=== PATIENT | female | born 1950 | race Caucasian/White ===

== ENCOUNTER 2018-11-09 11:27 | Emergency (ER) | payer MEDICARE, OTHER ==
[~2018-11-09] VITALS: Ht 160 cm; Wt 69.5 kg
[2018-11-09 11:33] VITALS: TEMP 97.7
[2018-11-09] MEDS ORDERED: SYNTHROID0.125 MG/T PO (11:40)
[2018-11-09] MEDS ORDERED: VITAMIN D32000 I1 PO (11:41)
[2018-11-09] MEDS ORDERED: LIPITOR 10MG10 MG PO (11:41)
[2018-11-09] MEDS ORDERED: DUTOPROL 12.5 M1 TE2 PO (11:41)
[2018-11-09] MEDS ORDERED: PREDFORTE5ML OU (11:42)
[2018-11-09 13:29] VITALS: BP 162/89; PULSE 65
== END 2018-11-09 13:31 | disposition home or self-care (01) ==
LOC: COL.ER 11:27
DX: S81.812A Laceration without foreign body, left lower leg, initial encounter (principal); I83.892 Varicose veins of left lower extremity with other complications; E03.9 Hypothyroidism, unspecified; Z94.7 Corneal transplant status; W26.9XXA Contact with unspecified sharp object(s), initial encounter

== ENCOUNTER 2018-12-08 05:15 | Day surgery (SDC) | payer MEDICARE, OTHER ==
[~2018-12-08] VITALS: Ht 160 cm; Wt 70.9 kg
[~2018-12-08 05:15] MED LIST: DUTOPROL 12.5 M1 TE2 PO; LIPITOR 10MG10 MG PO; PREDFORTE5ML OU; SYNTHROID0.125 MG/T PO; VITAMIN D32000 I1 PO
[2018-12-08 05:45] VITALS: BP 173/74; PULSE 63; TEMP 97.3
[2018-12-08] MEDS ORDERED: PREDFORTE5ML OU (06:08)
[2018-12-08] MEDS ORDERED: TIROSINT125 MC1 PO (06:09)
[2018-12-08] MEDS ORDERED: MASON NATURAL2000 IU PO (06:10)
[2018-12-08] MEDS ORDERED: TOPROL XL 25MG25 MG PO (06:11)
[2018-12-08] MEDS ORDERED: LIPITOR 10MG10 MG PO (06:11)
[2018-12-08] MEDS ORDERED: NORCO 325 MG-7.1 TAB PO (06:24)
[2018-12-08 07:17] VITALS: BP 132/67; PULSE 72
--- NOTE | 2018-12-08 07:17 | NUR ---
Patient returns to room 8 per cart from surgery and arouses to verbal stimuli. Room air sats 94% and temp 97.5. Dressing on the left wrist dry. Fingers warm to touch. Left arm elevated on pillow. IV fluids infusing right hand #20G. Siderails up x2 and call light in reach. Spouse in room.
[2018-12-08 07:32] VITALS: BP 139/80; PULSE 63
--- NOTE | 2018-12-08 07:32 | NUR ---
Awake and is drinking apple juice and eating toast. Denies pain or nausea.
[2018-12-08 07:47] VITALS: BP 181/83; PULSE 72
--- NOTE | 2018-12-08 07:47 | NUR ---
Tolerated toast and juice. Denies pain or nausea. Fingers warm and pink on the left hand.
[2018-12-08] MEDS ORDERED: CEPHALEXIN500 M1 PO (07:57)
[2018-12-08] MEDS ORDERED: PHENERGAN 25 TA25 MG PO (07:58)
[2018-12-08 08:02] VITALS: BP 166/74; PULSE 63
--- NOTE | 2018-12-08 08:02 | NUR ---
Continues to deny pain or nausea.
--- NOTE | 2018-12-08 08:14 | NUR ---
Up to the bathroom and gait steady. Voids and returns to room. IV discontinued and assisted patient with dressing.
--- NOTE | 2018-12-08 08:30 | NUR ---
Given patient dismissal instructions and voices understanding of home cares and follow up as scheduled.
--- NOTE | 2018-12-08 08:35 | NUR ---
Patient dismissed to home per private vehicle driven by spouse and taken to the front door per wheelchair and assisted into car by RN
== END 2018-12-08 08:35 | disposition home or self-care (01) ==
LOC: SDCO 05:15
DX: G56.02 Carpal tunnel syndrome, left upper limb (principal); Z79.52 Long term (current) use of systemic steroids; E78.00 Pure hypercholesterolemia, unspecified; Z90.710 Acquired absence of both cervix and uterus; Z80.0 Family history of malignant neoplasm of digestive organs; Z82.49 Family history of ischemic heart disease and other diseases of the circulatory system; I10 Essential (primary) hypertension; M19.90 Unspecified osteoarthritis, unspecified site
CPT/HCPCS: J0690; J2704; J7120

== ENCOUNTER → 2022-03-26 | Outpatient (CLI) | payer MEDICARE, OTHER ==
[~2022-03-26] VITALS: Ht 160 cm; Wt 71.2 kg
[~2022-03-26] MED LIST changes: +CEPHALEXIN500 M1 PO; +MASON NATURAL2000 IU PO; +NORCO 325 MG-7.1 TAB PO; +PHENERGAN 25 TA25 MG PO; +TIROSINT125 MC1 PO; +TOPROL XL 25MG25 MG PO
[2022-03-26 13:56] VITALS: BP 167/81; PULSE 76; TEMP 98
[2022-03-26 15:35] VITALS: BP 200/83; PULSE 61
[2022-03-26 15:50] VITALS: BP 180/83
== END ==
LOC: COL.RAD 13:00
DX: M50.30 Other cervical disc degeneration, unspecified cervical region (principal)
CPT/HCPCS: J1100